=== PATIENT | male | born 2000 | race Hispanic/Latino ===

== ENCOUNTER 2020-05-06 07:56 | Inpatient (IN) | payer OTHER ==
[2020-05-06] MEDS ORDERED: Morphine 4 MG/ML VIAL ONE (08:21)
[2020-05-06] MEDS ORDERED: Boostrix 0.5 ML VIAL ONE (08:21)
[2020-05-06] MEDS ORDERED: Lidocaine 1% w/Epinephrine 1:100K 20 ML VIAL ONE (08:40)
--- NOTE | 2020-05-06 08:51 | RAD ---
RIGHT ELBOW 4 VIEWS: Date: 05/06/2020 HISTORY: Elbow pain status post injury. FINDINGS: There are no signs of fracture, dislocation, or joint effusion. On some of these projections, there a ppears to be some air density within the soft tissues in the region adjacent to the humerus suggestin g an associated soft tissue injury. IMPRESSION: No evidence of fracture or joint effusion. POS: [facility]
--- NOTE | 2020-05-06 08:51 | RAD ---
RIGHT FOREARM 2 VIEWS: HISTORY: Forearm injury. FINDINGS/IMPRESSION: There are no signs of fracture. On the lateral view, the ulna appears dorsally displaced at the radi al ulnar joint space. Clinical correlation as to any findings that would suggest radial ulnar joint injury. POS: [facility]
--- NOTE | 2020-05-06 08:52 | RAD ---
RIGHT WRIST 3 VIEWS: HISTORY: Wrist injury. FINDINGS: There are no signs of fracture. The ulna appears dorsally subluxed in relation to the radius. Clini jose correlation as to any radial ulnar joint findings that would suggest injury at this level. IMPRESSION: Apparent subluxation at the radioulnar joint. POS: [facility]
--- NOTE | 2020-05-06 09:02 | RAD ---
CHEST 1 VIEW: Date: 05/06/2020 HISTORY: Injury. COMPARISON: None. FINDINGS: Lungs are clear. No pneumothorax. No effusion. Cardiac silhouette and mediastinal contours are within normal limits. No acute osseous abnormality. IMPRESSION: No acute intrathoracic abnormality. POS: [facility]
--- NOTE | 2020-05-06 09:02 | RAD ---
RIGHT SHOULDER 3 VIEWS: Date: 05/06/2020 HISTORY: Injury. COMPARISON: None. FINDINGS: The glenohumeral joint alignment, as well as the acromioclavicular alignment is normal. Ribs are inta ct. No acute fracture. No pneumothorax. Soft tissues are unremarkable. IMPRESSION: Normal examination of the right shoulder. POS: [facility]
[2020-05-06] MEDS ORDERED: Sodium Chloride 0.9% 100 ML ONE (09:56)
[2020-05-06] MEDS ORDERED: CEFAZOLIN 1 GM VIAL ONE ×2 (09:56→10:15)
[2020-05-06] MEDS ORDERED: Phenylephrine 10 MG/ML VIAL ONE (10:02)
[2020-05-06] MEDS ORDERED: Fentanyl 100 MCG/2 ML VIAL ONE (10:02)
[2020-05-06] MEDS ORDERED: Norepinephrine 4 MG/4 ML VIAL ONE (10:02)
[2020-05-06] MEDS ORDERED: Bupivacaine PF 0.5% 30 ML VIAL ONE (11:45)
[2020-05-06] MEDS ORDERED: Promethazine HCl 25 MG/ML VIAL IM PRN (13:21)
[2020-05-06] MEDS ORDERED: Ondansetron HCl/PF 4 MG/2 ML Vial IVP PRN (13:21)
[2020-05-06] MEDS ORDERED: Promethazine HCl 25 MG/ML VIAL SLOW IVP PRN (13:21)
--- NOTE | 2020-05-06 13:24 | RAD ---
EXAM: 3 views of the right wrist HISTORY: Closed reduction of radial ulnar subluxation COMPARISON: 05/06/2020 FINDINGS: 3 limited fluoroscopic views of the right wrist shows no evidence of acute fracture or disl ocation on the radiograph taken before the splint placement. After the splint placement, there is apparent dorsal subluxation of the ulna in relation to the radiocarpal joint. No soft tissue swelling is seen. No degenerative changes are present. IMPRESSION: Stable relationship of the ulna to the radiocarpal joint
--- NOTE | 2020-05-06 13:26 | RAD ---
EXAM: 2 views of the right elbow HISTORY: Closed reduction and splint placement. COMPARISON: 05/06/2020 FINDINGS: Limited fluoroscopic views of the right elbow were submitted for interpretation. There may be a small elbow effusion. There is no evidence of acute fracture or dislocation. No significant degenerative changes are seen. No soft tissue swelling is present. IMPRESSION: Questionable small elbow effusion.
[2020-05-06] MEDS ORDERED: Acetaminophen 325 MG TAB PO PRN (13:32)
[2020-05-06] MEDS ORDERED: Bisacodyl 10 MG SUPP PR PRN (13:32)
[2020-05-06] MEDS ORDERED: traMADol HCl 50 MG TAB PO PRN (13:32)
[2020-05-06] MEDS ORDERED: Morphine 4 MG/ML VIAL SLOW IVP PRN (13:32)
[2020-05-06] MEDS ORDERED: Fentanyl 100 MCG/2 ML VIAL SLOW IVP PRN (13:32)
[2020-05-06] MEDS ORDERED: Succinylcholine Chloride 20 MG/ML 10 ml SYRINGE FS ONE (13:33)
[2020-05-06] MEDS ORDERED: PROPOFOL 200 MG/20 ML VIAL ONE (13:33)
[2020-05-06] MEDS ORDERED: Ketorolac Tromethamine 30 MG/ML VIAL ONE (13:33)
[2020-05-06] MEDS ORDERED: Lidocaine 1% PF 5 ML VIAL ONE (13:33)
[2020-05-06] MEDS ORDERED: PHENYLEPHRINE-NS 100 MCG/ML 10 ML SYRINGE ONE (13:33)
[2020-05-06] MEDS ORDERED: Ondansetron PF 4 MG/2 ML Vial ONE (13:33)
[2020-05-06] MEDS ORDERED: Rocuronium Bromide 10 MG/ML (10ML VIAL) ONE (13:33)
[2020-05-06] MEDS ORDERED: Glycopyrrolate 0.2 MG/ML 5 ML SYRINGE ONE (13:33)
[2020-05-06] MEDS ORDERED: Dexamethasone 20 MG/5 ML VIAL ONE (13:33)
[2020-05-06] MEDS ORDERED: Ketorolac Tromethamine 30 MG/ML VIAL IVP PRN (13:38)
[2020-05-06] MEDS ORDERED: Meperidine HCl/PF 25 MG/ML VIAL IM PRN (13:38)
[2020-05-06] MEDS ORDERED: TETANUS AND DIPHTHERIA TOX/PF 0.5 ML DISP.SYRIN IM SCH (13:45)
[2020-05-06] MEDS ORDERED: Communication Order-Pharmacy FS SCH (13:45)
[2020-05-06] MEDS: Sodium Chloride 0.9% 100 ML IV SCH ×3 (17:48→18:07)
[2020-05-06] MEDS: Ketorolac Tromethamine 30 MG/ML VIAL IVP SCH (17:50)
[2020-05-06] MEDS: Gentamicin 80 MG/2 ML VIAL IM SCH (18:43)
[2020-05-06] MEDS: Aspirin 81 mg Enteric Coated Tablet PO SCH (20:58)
[2020-05-06] MEDS: Vancomycin 1 GM in Premix Bag 1 BAG IVPB SCH (20:58)
[2020-05-07] MEDS: Ketorolac Tromethamine 30 MG/ML VIAL IVP SCH ×4 (00:42→18:44)
[2020-05-07] MEDS: Sodium Chloride 0.9% 100 ML IV SCH ×2 (00:43→00:44)
[2020-05-07] MEDS: Sodium Chloride 0.9% 1,000 ML IV SCH ×3 (00:45→21:01)
[2020-05-07] MEDS: Gentamicin 80 MG/2 ML VIAL IM SCH ×3 (03:38→18:45)
[2020-05-07 05:36] LABS: #Lymphocytes 0.7 thou/uL (1.20-3.40); #Monocytes 1.1 thou/uL (0.11-0.59); #Neutrophils 9.1 thou/uL (1.40-6.50); %Basophils 0.1 % (0.0-1.0); %Eosinophils 0.1 % (0.0-10.0); %Lymphocytes 6.8 % (21.0-51.0); %Monocytes 9.9 % (0.0-10.0); %Neutrophils 83.2 % (42.0-75.0); Hemoglobin 13.3 g/dL (14.0-18.0); Mean Corpuscular HGB CONC 32.9 g/dL (32.0-36.0); Mean Corpuscular Hemoglobin 31.1 pg (27.0-31.0); Mean Corpuscular Volume 94.6 fL (78.0-98.0); Mean Platelet Volume 7.2 fL (7.4-10.4); Platelet Count 277 thou/uL (130-400); RBC Distribution Width 12.1 % (11.5-14.5); Red Blood Cell (RBC) Count 4.28 mill/uL (4.70-6.10); White Blood Cell (WBC) Count 10.9 thou/uL (4.8-10.8)
[2020-05-07 05:48] LABS: INR-International Normal Ratio 1.1; PTT 35.1 sec (22.9-36.1); Prothrombin Time 14.9 sec (12.0-14.7)
[2020-05-07 05:58] LABS: ALT (SGPT) 16 U/L (8-55); AST (SGOT) 29 U/L (5-34); Albumin 4.1 g/dL (3.5-5.0); Alkaline Phosphatase 74 U/L (40-110); Anion Gap 10 mmol/L (10-20); BUN (Urea Nitrogen) 12 mg/dL (8.9-20.6); Bilirubin, Total 0.5 mg/dL (0.2-1.2); Calc. Creatinine Clearance 128 mL/min (70-130); Calcium 8.7 mg/dL (7.8-10.44); Carbon Dioxide 28 mmol/L (22-29); Chloride 106 mmol/L (98-107); Estimated GFR-MDRD Greater than 90; Globulin 2.5 g/dL (2.4-3.5); Glucose 116 mg/dL (70-105); Potassium 4.1 mmol/L (3.5-5.1); Protein, Total 6.6 g/dL (6.0-8.3); Sodium 140 mmol/L (136-145)
[2020-05-07] MEDS: Aspirin 81 mg Enteric Coated Tablet PO SCH ×2 (09:18→21:00)
[2020-05-07] MEDS: Vancomycin 1 GM in Premix Bag 1 BAG IVPB SCH ×2 (09:18→21:00)
[2020-05-07 10:50] VITALS: BMI 27.5
[2020-05-07] MEDS ORDERED: Promethazine HCl 25 MG/ML VIAL IM PRN (11:53)
[2020-05-07] MEDS ORDERED: Ondansetron PF 4 MG/2 ML Vial IVP PRN (11:54)
--- NOTE | 2020-05-07 13:25 | RAD ---
Frontal and lateral imaging of the right forearm: 05/07/2020 COMPARISON: 05/06/2020 HISTORY: Subluxation of the distal radioulnar joint status post reduction and casting FINDINGS: The patient is imaged in a cast. Secondary to the oblique nature of the provided imaging, t he distal radioulnar joint cannot be adequately assessed on this exam. No frontal imaging at the level the wrist is provided. No displaced fracture is seen. IMPRESSION: Suboptimal assessment of the distal radioulnar joint secondary to positioning.
[2020-05-07] MEDS ORDERED: FLU VACC QS2020-21(6MOS UP)/PF 60 MCG/0.5 ML SYRINGE IM ONE (21:00)
[2020-05-08] MEDS: Gentamicin 80 MG/2 ML VIAL IM SCH ×3 (03:36→18:36)
[2020-05-08] MEDS: Sodium Chloride 0.9% 1,000 ML IV SCH ×3 (05:32→20:13)
[2020-05-08] MEDS: Vancomycin 1 GM in Premix Bag 1 BAG IVPB SCH ×2 (08:56→20:11)
[2020-05-08] MEDS: Aspirin 81 mg Enteric Coated Tablet PO SCH ×2 (08:56→20:11)
[2020-05-08] MEDS: HYDROcodone/Acetaminophen 5/325 mg Tablet PO PRN (11:01)
--- NOTE | 2020-05-08 12:00 | OP ---
DATE OF PROCEDURE: 05/07/2020 PREOPERATIVE DIAGNOSES: 1. Right elbow open joint with hemarthrosis. 2. A 7 cm laceration with possible radial nerve laceration. POSTOPERATIVE DIAGNOSES: 1. Right elbow 7 cm wound, which after exploration showed radial nerve neurapraxia with area of contusion in the center of the wound, but no radial nerve laceration and no posterior interosseous nerve laceration. 2. Distal radioulnar joint possible subluxation, even though the patient was not tender here. There would be dorsal subluxation of distal radioulnar joint and open right elbow joint with hemarthrosis. PROCEDURES PERFORMED: 1. Radial nerve neuroplasty. 2. Posterior interosseous nerve neuroplasty. 3. Extensor forearm compartment release. 4. Right arm extensor compartment release. 5. Debridement of open wound, right upper extremity and arm. 6. Debridement of material associated with open joint injury. 7. Application of wound vacuum-assisted closure, less than 100 cm2. 8. C-arm supervision. 9. Closed reduction of a distal radioulnar joint subluxation. INDICATIONS FOR PROCEDURE: The patient had been involved in an accident where he reports his arm was caught and it caught and jammed. Although he had good pulses, he had loss of sensation in the superficial radial nerve distribution, EPL, EDC, and by the time I examined, wrist extension was not present. He had a 7 cm laceration obliquely just proximal to the elbow joint, extended down to the lateral epicondyle. I felt by radiographic imaging he may have air into the elbow and he had a nerve injury, so this wound should be explored, debrided, and the joint verified if opened, irrigated, and debrided. DESCRIPTION OF PROCEDURE: After successful general endotracheal anesthesia, the limb was prepped and draped. A sterile tourniquet was applied with the whole arm draped up to the level of the acromioclavicular joint. We placed sterile tourniquet high in the arm. It must be noted that on exam, the patient did not have tenderness over the distal radioulnar joint. He did have the radial nerve lesion that was described above. On exam under anesthesia, the patient had marked difficulty in terms of tension, increased with supination of the distal radioulnar joint compared to no such tension on the contralateral side. We then extended the 7 cm injury 3 cm proximal and 4 cm distal. We then saw that there was marked contamination with particles consistent with fibers of great amount superficial, some in the fascia and some along the lateral humeral edge, where we saw separation of both the extensor muscle and the fascia in 2 compartments. We developed this created a fascial compartment release, removed as many particles as we could see and then debrided the wound using excisional technique. [place] blade and tenotomy scissors were used, and then we irrigated the area after we had cleaned it and debrided all the way with 3 L normal saline and Pulsavac pressure. Then, we extended the deep incision and saw that there appeared to be a small connection to the joint from the superior aspect, so we extended the incision and opened the joint. It was a hemarthrosis. The joint was opened at the junction at the radiocapitellar joint direct laterally. Once we irrigated the joint with 2 L of normal saline and the hematoma was gone, we continued with our dissection of the radial nerve. We performed a radial nerve neuroplasty and visualized radial nerve 3 cm proximal to the wound, carried this to where the radial nerve trifurcated in the superficial radial nerve branch and the posterior interosseous nerve. We then went distal to the radiocapitellar joint, saw the posterior interosseous nerve by releasing the fascia and muscle over the posterior interosseous nerve to the point where it bifurcated and saw it was not lacerated. Once we finished this, we then released the tourniquet. We irrigated with another 5 L of normal saline. Before we closed the wound, removed one or two more particles and then because the wound had been contaminated and had open joint, we closed only approximately half of the incision we created leaving approximately 10 cm long x 4 cm wide wound. Wound Care was brought in to the room and a VAC dressing was applied with excellent suction. We then put a dressing over the wound, placed a cast padding from the proximal third of the arm all way to the MP joints and then put a dorsal and palmar shell Orthoplast wire, held the reduction of the distal radioulnar joint and full supination, but in lateral views, they were still approximately 15% dorsally located. We will compare this to the opposite side with radiographs postop. The patient left the operating room without evidence of anesthetic or operative complication, to be admitted for at least 24 to 36 hours with IV antibiotics before we consider wound closure in 2 days. Job ID: [id number]
[2020-05-09] MEDS: Ondansetron PF 4 MG/2 ML Vial SLOW IVP PRN (03:33)
[2020-05-09 05:37] LABS: #Eosinphils 0.1 thou/uL (0.0-0.7); #Neutrophils 7.1 thou/uL (1.40-6.50); %Basophils 0.4 % (0.0-1.0); %Eosinophils 1.1 % (0.0-10.0); %Lymphocytes 19.1 % (21.0-51.0); %Monocytes 10.1 % (0.0-10.0); %Neutrophils 69.3 % (42.0-75.0); Hemoglobin 12.5 g/dL (14.0-18.0); Mean Corpuscular HGB CONC 33.1 g/dL (32.0-36.0); Mean Corpuscular Hemoglobin 31.5 pg (27.0-31.0); Mean Corpuscular Volume 95.4 fL (78.0-98.0); Mean Platelet Volume 7.2 fL (7.4-10.4); Platelet Count 253 thou/uL (130-400); Red Blood Cell (RBC) Count 3.95 mill/uL (4.70-6.10); White Blood Cell (WBC) Count 10.3 thou/uL (4.8-10.8)
[2020-05-09] MEDS: Aspirin 81 mg Enteric Coated Tablet PO SCH ×3 (08:38→20:50)
[2020-05-09] MEDS: Vancomycin 1 GM in Premix Bag 1 BAG IVPB SCH ×2 (08:38→20:53)
--- NOTE | 2020-05-09 10:52 | MRI ---
EXAM: MRI right wrist PROVIDED CLINICAL HISTORY: Pain status post injury COMPARISON: Radiographs 05/06/2020 FINDINGS: There is patchy increased signal intensity on fluid sensitive sequences involving the distal dorsal f orearm musculature and radial distal volar forearm musculature, compatible with muscular strain. There is noncircumscribed fluid signal intensity within the subcutaneous adipose layer at the dorsum of the wrist and radial aspect of the wrist and distal forearm compatible with bruising or edema. There is no evidence for a focal fluid collection to suggest organized hematoma. There is partial thickness interstitial tearing involving the extensor carpi ulnaris tendon at the le danielle of the ulnar groove. The dorsal extensor and volar flexor tendons demonstrate an otherwise intact MR appearance. The distal radioulnar joint appears normal. There is no evidence for ECU subshe ath injury. Alignment appears anatomic. Joint spaces appear preserved. No regional joint effusion is evident. The scapholunate and lunotriquetral ligaments appear intact, as does the TFC complex. IMPRESSION: 1. Muscular edema as above that could reflect low-grade strain. 2. Partial thickness interstitial tear of the extensor carpi ulnaris tendon. No evidence for ECU subs lisette injury or DRUJ injury.
[2020-05-09] MEDS: Sodium Chloride 0.9% 1,000 ML IV SCH ×2 (12:57→22:20)
[2020-05-09 20:11] LABS: Calc. Creatinine Clearance 124 mL/min (70-130); Estimated GFR-MDRD Greater than 90; Vancomycin, Trough 5.6 ug/mL
[2020-05-10] MEDS: Vancomycin 1 GM in Premix Bag 1 BAG IVPB SCH ×2 (05:04→13:27)
[2020-05-10] MEDS: HYDROcodone/Acetaminophen 5/325 mg Tablet PO PRN (05:06)
[2020-05-10] MEDS: Ondansetron PF 4 MG/2 ML Vial SLOW IVP PRN (05:06)
[2020-05-10 08:18] LABS: SARS-CoV-2 NAA Rapid Test Not Detected (NotDetected)
[2020-05-10] MEDS: Aspirin 81 mg Enteric Coated Tablet PO SCH ×2 (09:27→21:46)
[2020-05-10] MEDS ORDERED: Dexamethasone 20 MG/5 ML VIAL ONE (09:57)
[2020-05-10] MEDS ORDERED: Ketorolac Tromethamine 30 MG/ML VIAL ONE (09:57)
[2020-05-10] MEDS ORDERED: PROPOFOL 200 MG/20 ML VIAL ONE (09:57)
[2020-05-10] MEDS ORDERED: Ondansetron PF 4 MG/2 ML Vial ONE ×2 (09:57→17:52)
[2020-05-10] MEDS ORDERED: Metoclopramide HCl 10 MG/2 ML VIAL ONE (09:57)
[2020-05-10] MEDS ORDERED: Lidocaine 1% PF 5 ML VIAL ONE (09:57)
[2020-05-10] MEDS ORDERED: Neomycin-Polymyxin 1 ML AMP ONE (15:18)
[2020-05-10] MEDS ORDERED: Bacitracin Zinc Ointment 30 gm TUBE ONE (15:18)
[2020-05-10] MEDS ORDERED: Bupivacaine PF 0.5% 30 ML VIAL ONE (15:18)
[2020-05-10] MEDS ORDERED: Fentanyl 100 MCG/2 ML VIAL ONE (15:29)
[2020-05-10] MEDS ORDERED: Midazolam HCl 2 mg/2 ml Vial ONE (15:29)
[2020-05-10] MEDS ORDERED: Famotidine/PF 20 mg/2ml Vial ONE (15:59)
[2020-05-10] MEDS ORDERED: Betamet Acet/Betamet Na Ph 30 MG/5 ML VIAL ONE (16:30)
[2020-05-10] MEDS ORDERED: Morphine Sulfate 2 MG/ML SYRINGE SLOW IVP PRN (17:20)
[2020-05-10] MEDS ORDERED: HYDROmorphone 2 MG/ML VIAL SLOW IVP PRN (17:20)
[2020-05-10] MEDS ORDERED: Promethazine HCl 25 MG/ML VIAL SLOW IVP PRN (17:20)
[2020-05-10] MEDS ORDERED: Promethazine HCl 25 MG/ML VIAL IM PRN (17:20)
[2020-05-10] MEDS ORDERED: Meperidine HCl/PF 25 MG/ML VIAL SLOW IVP PRN (17:20)
[2020-05-10] MEDS ORDERED: Ondansetron HCl/PF 4 MG/2 ML Vial IVP PRN (17:20)
[2020-05-10] MEDS ORDERED: Ketorolac Tromethamine 30 MG/ML VIAL IVP PRN (17:20)
[2020-05-10] MEDS ORDERED: PACU-Morphine 4MG/ML VIAL SLOW IVP PRN (17:20)
[2020-05-10] MEDS ORDERED: ceFAZolin 1 GM/D5W 1 GM in Premix Bag 1 BAG IVPB SCH (18:15)
[2020-05-10] MEDS: Sodium Chloride 0.9% 1,000 ML IV SCH ×2 (20:20→20:21)
[2020-05-10] MEDS: ceFAZolin 1 GM/D5W 1 GM in Premix Bag 1 BAG IVPB SCH (21:47)
[2020-05-11] MEDS: ceFAZolin 1 GM/D5W 1 GM in Premix Bag 1 BAG IVPB SCH (03:50)
[2020-05-11] MEDS: Sodium Chloride 0.9% 1,000 ML IV SCH ×2 (05:30→14:49)
[2020-05-11 05:42] LABS: Vancomycin, Trough 4.9 ug/mL
[2020-05-11] MEDS: Aspirin 81 mg Enteric Coated Tablet PO SCH ×2 (09:59→20:37)
[2020-05-12] MEDS: Sodium Chloride 0.9% 1,000 ML IV SCH (04:05)
[2020-05-12] MEDS: Aspirin 81 mg Enteric Coated Tablet PO SCH (08:15)
[2020-05-12 08:25] VITALS: BP 107/61; TEMP 97.6
--- NOTE | 2020-05-12 09:25 | OP ---
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 FINDINGS: No gross infection to radial nerve, unchanged with no evidence of lesion clinically except for the neurapraxia already know. Celestone was placed on the nerve. ESTIMATED BLOOD LOSS: 20 mL. TOURNIQUET TIME: None. INDICATIONS: The patient returns for staged wound management after having an early hematoma and open wound with elbow joint involvement as well as the radial nerve neurapraxia, but exploration revealing no nerve laceration. Additionally, he had a mildly elevated white count, so after debridement, including removal of subcutaneous contamination, the wound was dressed open and VAC dressing change was done every other day x2. He returns now for staged wound management to close the wound for environment . The radial nerve exam has not changed. DESCRIPTION OF PROCEDURE: After successful general endotracheal anesthesia, the limb was prepped and draped. The patient had time-out done appropriately. We then had the limb prepped and draped with a sterile tourniquet applied high in the arm up to the axilla. We then inspected the wound, found no gross contamination. We used tenotomy scissors to debride the wound edges as well as some denuded muscle from the lateral aspect of the triceps. Then, we inspected the radial nerve and there was no further lesion here. We then irrigated the wound with 3 L of normal saline and Pulsavac pressure, inspected and found no contamination and then began closure. The fascia was loosely approximated x3 spots along the lateral condylar ridge of the distal humerus. Then, we used a simple mattress suture for the epidermal and dermal closure simultaneously. The patient had no drainage or hematoma and left the operating room in an in a long-arm splint with the digits in 20 degrees of the wrist dorsal flexion, the MP joints in neutral and the splint out to the PIP joint on the lesser digits and to the IP joint of the thumb. Thumb web space was abducted to 60 degrees. Job ID: [id number]
== END 2020-05-12 10:15 | disposition home or self-care (01) | DRG 42 ==
LOC: ERS 07:56 → SJJU 14:59
PROVIDERS: ADMIT Orthopaedic Surgery Hand Surgery; ATTEND Orthopaedic Surgery Hand Surgery
PROC: 01N60ZZ Release Radial Nerve, Open Approach (ICD-10-PCS; principal; 2020-05-06)
PROC: 0JBG0ZZ Excision of Right Lower Arm Subcutaneous Tissue and Fascia, Open Approach (ICD-10-PCS; 2020-05-06)
PROC: 0R9L0ZZ Drainage of Right Elbow Joint, Open Approach (ICD-10-PCS; 2020-05-06)
PROC: 0RSLXZZ Reposition Right Elbow Joint, External Approach (ICD-10-PCS; 2020-05-06)
PROC: 3E0234Z Introduction of Serum, Toxoid and Vaccine into Muscle, Percutaneous Approach (ICD-10-PCS; 2020-05-06)
PROC: 0KD70ZZ Extraction of Right Upper Arm Muscle, Open Approach (ICD-10-PCS; 2020-05-10)
DX: S44.21XA Injury of radial nerve at upper arm level, right arm, initial encounter (principal); S53.491A Other sprain of right elbow, initial encounter; S63.011A Subluxation of distal radioulnar joint of right wrist, initial encounter; Z20.828 Contact with and (suspected) exposure to other viral communicable diseases; X58.XXXA Exposure to other specified factors, initial encounter; Z23 Encounter for immunization; Y92.69 Other specified industrial and construction area as the place of occurrence of the external cause; Y99.0 Civilian activity done for income or pay
CPT/HCPCS: 29125; 36415; 71045; 76000; 80053; 80202; 82565; 85025; 85610; 85730; 90471; 90715; 96372; 96374; 99406; J0690; J0702; J1100; J1580; J1885; J2250; J2270; J2370; J2405; J2704; J2765; J3010; J3370; J3490; S0020; S0028; U0002